=== PATIENT | female | born 1955 | race American Indian/Alaskan Native ===

== ENCOUNTER 2019-09-12 14:11 | Emergency (ER) | payer SELFPAY ==
[2019-09-12 14:22] VITALS: BP 162/91
--- NOTE | 2019-09-12 16:03 | Event Note ---
ED Screening Note Date of service: 09/12/19 Time: 16:01 ED Screening Note: Pt complains of cough, body aches, shortness of breath, and headache x 2 weeks Hx of HTN This initial assessment/diagnostic orders/clinical plan/treatment(s) is/are subject to change based on patients health status, clinical progression and re- assessment by fellow clinical providers in the ED. Further treatment and workup at subsequent clinical providers discretion. Patient/guardian urged not to elope from the ED as their condition may be serious if not clinically assessed and managed. Initial orders include: labs CXR
[2019-09-12 16:31] LABS: Basophils % (Auto) 0.2 % (0.0-1.8); Eosinophils % (Auto) 0.6 % (0.0-4.3); Hematocrit 35.7 % (30.3-42.9); Hemoglobin 11.5 gm/dl (10.1-14.3); Lymphocytes # (Auto) 1.5 K/mm3 (1.2-5.4); Lymphocytes % (Auto) 25.1 % (13.4-35.0); Mean Corpuscular HGB Conc 32 % (30-34); Mean Corpuscular Volume 81 fl (79-97); Monocytes # (Auto) 0.8 K/mm3 (0.0-0.8); Monocytes % (Auto) 14.1 % (0.0-7.3); Platelet Count 187 K/mm3 (140-440); Red Blood Count 4.44 M/mm3 (3.65-5.03); Red Cell Distribution Width 13.7 % (13.2-15.2)
--- NOTE | 2019-09-12 16:36 | XRay Report ---
CHEST 2 VIEWS INDICATION / CLINICAL INFORMATION: cough, shortness of breath, possible covid. COMPARISON: None available. FINDINGS: SUPPORT DEVICES: None. HEART / MEDIASTINUM: No significant abnormality. LUNGS / PLEURA: No significant pulmonary or pleural abnormality. No pneumothorax. ADDITIONAL FINDINGS: No significant additional findings. IMPRESSION: 1. No acute abnormality of the chest. Signer Name: Osvaldo Degroot MD Signed: 09/12/2019 4:31 PM Workstation Name: [id number]
[2019-09-12 16:58] LABS: Alanine Aminotransferase 12 units/L (7-56); BUN/Creatinine Ratio 24; Blood Urea Nitrogen 12 mg/dL (7-17); Calcium 9.3 mg/dL (8.4-10.2); Hemolysis Index 8
[2019-09-12 16:59] LABS: Bilirubin,Direct < 0.2 mg/dL (0-0.2)
[2019-09-12] MEDS ORDERED: IBUPROFEN 600 MG TAB PO ONE (22:17)
[2019-09-12] MEDS ORDERED: BENZONATATE 100 MG CAP PO ONE (22:18)
--- NOTE | 2019-09-12 22:18 | Emergency Department Report ---
Minor Respiratory - HPI Chief Complaint: Pain General Stated Complaint: WEAKNESS Time Seen by Provider: 09/12/19 15:59 Duration: 2 weeks Minor Respiratory: Yes Able to Tolerate Fluids, Yes Cough, Yes Chest Pain (Body aches rib pain), Yes Shortness of Breath, Yes Fever, No Rhinorrhea, No Sore Throat, No Ear Pain, No Sick Contacts, No Hemoptysis Other History: 64-year-old female presents to the emergency room complaining of body aches, headache, body aches, neck pain, and shortness of breath x2 weeks. Patient has taken nothing for her pain or her cough. Patient reports she has history of hypertension. She has no known drug allergies. ED Review of Systems ROS: Stated complaint: WEAKNESS Other details as noted in HPI Comment: All other systems reviewed and negative ED Past Medical Hx - Past Medical History Hx Hypertension: Yes - Social History Smoking Status: Never Smoker Substance Use Type: None - Medications Home Medications: Home Medications Medication Instructions Recorded Confirmed Last Taken Type Benzonatate [Tessalon Perles] 100 mg PO Q8HR PRN #15 capsule 09/12/19 Unknown Rx Ibuprofen [Motrin 600 MG tab] 600 mg PO Q8H PRN #15 tablet 09/12/19 Unknown Rx Minor Respiratory Exam - Exam General: Vital signs noted. No distress. Alert and acting appropriately. HEENT: Yes Moist Mucous Membranes, No Pharyngeal Erythema, No Pharyngeal Exudates, No Rhinorrhea, No Conjuctival Injection, No Frontal Tenderness, No Maxillary Tenderness Ear: Neither TM Bulge, Neither TM Erythema, Neither EAC Pain, Neither EAC Discharge Neck: Yes Supple, No Adenopathy Lungs: Yes Good Air Exchange, No Wheezes, No Ronchi, No Stridor, No Cough, No Labored Respirations, No Retractions, No Use of Accessory Muscles, No Other Abnormal Lung Sounds Heart: Yes Regular, No Murmur Abdomen: Yes Normal Bowel Sounds, No Tenderness, No Peritoneal Signs Skin: No Rash, No Edema Neurologic: Alert and oriented, no deficits. Musculoskeletal: Unremarkable. ED Course Vital Signs 09/12/19 14:20 Temperature 99.5 F Pulse Rate 84 Respiratory 20 Rate Blood Pressure 162/91 O2 Sat by Pulse 99 Oximetry ED Medical Decision Making - Lab Data Result diagrams: 09/12/19 16:06 09/12/19 16:06 - Radiology Data Radiology results: report reviewed Referring Physician:KERRI IRAHETAPatient Name:SERENITY OLSENOPatient ID:[id number] of :[id number]:FemaleAccession:[id number] D ate:[id number] Status:Finalized Findings [facility] [address] [place] [address] XRay Report Signed Patient: SERENITY TRAYLOR MR#: [id number] : 1955 Acct:[id number] Age/Sex: 64 / F ADM Date: 09/12/19 Loc: ED Attending Dr: Ordering Physician: KERRI IRAHETA Date of Service: 09/12/19 Procedure(s): XR chest routine 2V Accession Number(s): [id number] cc: KERRI IRAHETA Fluoro Time In Minutes: CHEST 2 VIEWS INDICATION / CLINICAL INFORMATION: cough, shortness of breath, possible covid. COMPARISON: None available. FINDINGS: SUPPORT DEVICES: None. HEART / MEDIASTINUM: No significant abnormality. LUNGS / PLEURA: No significant pulmonary or pleural abnormality. No pneumothorax. ADDITIONAL FINDINGS: No significant additional findings. IMPRESSION: 1. No acute abnormality of the chest. Signer Name: Osvaldo Degroot MD Signed: 09/12/2019 4:31 PM Workstation Name: [id number] Transcribed By: [place] Dictated By: Osvaldo Degroot MD Electronically Authenticated By: Osvaldo Degroot MD Signed Date/Time: 09/12/19 163 DD/ 163 TD/TT: - Medical Decision Making 64-year-old female presents to the emergency room complaining of body aches, headache, body aches, neck pain, and shortness of breath x2 weeks. Patient has taken nothing for her pain or her cough. Patient reports she has history of hypertension. She has no known drug allergies. Chest x-ray reviewed by me appears to either have a aortic knob or calcification granuloma. Will refer patient to pulmonary as well as vascular surgery. Critical care attestation.: If time is entered above; I have spent that time in minutes in the direct care o f this critically ill patient, excluding procedure time. ED Disposition Clinical Impression: Viral syndrome Disposition: DC-01 TO HOME OR SELFCARE Is pt being admited?: No Does the pt Need Aspirin: No Condition: Stable Instructions: Viral Syndrome (ED) Additional Instructions: Please take cough medication and pain medication as prescribed. Is very important for you to follow-up with the [facility] as well as a vascular doctor. Prescriptions: Ibuprofen [Motrin 600 MG tab] 600 mg PO Q8H PRN #15 tablet PRN Reason: Pain , Severe (7-10) Benzonatate [Tessalon Perles] 100 mg PO Q8HR PRN #15 capsule PRN Reason: Cough Referrals: PRIMARY CARE, [Primary Care Provider] - 3-5 Days CHANELLE SANDERSON MD [Staff Physician] - 3-5 Days BROOKLYNN NOBLES MD [Staff Physician] - 3-5 Days
== END 2019-09-12 23:09 | disposition home or self-care (01) ==
LOC: ED 14:11
DX: B34.9 Viral infection, unspecified (principal)
CPT/HCPCS: 36415; 71046; 80048; 80076; 85025; 99283